=== PATIENT | male | born 1960 | race Caucasian/White ===

== ENCOUNTER → 2024-05-23 13:51 | Outpatient (REF) | payer OTHER, SELFPAY | LOC: RAD 13:51 | PROVIDERS: ATTENDING PHYSICIAN Internal Medicine Hematology & Oncology; FAMILY PHYSICIAN Emergency Medicine; REFERRING PHYSICIAN Family Medicine | DX: D69.6 Thrombocytopenia, unspecified (principal); C91.10 Chronic lymphocytic leukemia of B-cell type not having achieved remission; Z13.220 Encounter for screening for lipoid disorders; R26.89 Other abnormalities of gait and mobility; R22.42 Localized swelling, mass and lump, left lower limb; N18.30 Chronic kidney disease, stage 3 unspecified; R30.0 Dysuria; R10.84 Generalized abdominal pain; R97.20 Elevated prostate specific antigen [PSA] | CPT/HCPCS: 76775 ==